=== PATIENT | male | born 1950 | race Caucasian/White ===

== ENCOUNTER 2016-09-24 07:25 | Emergency (ER) | payer OTHER ==
[~2016-09-24] VITALS: Ht 182.9 cm; Wt 79.4 kg
[~2016-09-24 07:25] MED LIST: HYDROCHLOROTH12.5 M1 PO; HYDROCODON-ACE1 EAC7 PO; HYDROCODONE-APA1 TA1 PO; IBUPROFEN 600600 M1 PO; PENICILLIN VK250 MG PO
[2016-09-24] MEDS ORDERED: LISINOPRIL10 MG PO (07:31)
[2016-09-24 07:48] LABS: ABSOLUTE NEUTROPHILS 2.7 thou/uL (1.4-8.2); BASOPHILS 0.6 % (0.0-2.0); EOSINOPHILS 1.7 % (0.0-3.0); HEMATOCRIT 42.9 % (42.0-52.0); HEMOGLOBIN 14.7 gm/dL (14.0-18.0); LYMPHOCYTES 41.8 % (24.0-44.0); MCH 31.2 pg (26.0-34.0); MCHC 34.2 g/dL (28.0-37.0); MCV 91.2 fL (80.0-100.0); MONOCYTES 9.6 % (1.0-8.0); PLATELET COUNT 172 thou/uL (150-400); POLYS 46.3 % (36.0-66.0); RDW 15.6 % (10.5-14.5); WBC 5.9 thou/uL (4.0-11.0)
[2016-09-24 07:59] LABS: MANUAL DIFF NO
[2016-09-24 08:04] LABS: CALCIUM 8.2 mg/dL (8.5-10.1); CREATININE 0.8 mg/dL (0.7-1.3); POTASSIUM 3.1 mmol/L (3.5-5.1)
[2016-09-24 08:09] LABS: ALBUMIN 3.5 g/dL (3.4-5.0); TOTAL BILIRUBIN 0.3 mg/dL (<0.1-1.0); TOTAL PROTEIN 7.4 g/dL (6.4-8.2)
[2016-09-24 08:42] LABS: URINE BILIRUBIN NEGATIVE (Negative); URINE BLOOD NEGATIVE (Negative); URINE COLOR YELLOW; URINE GLUCOSE-RANDOM* NEGATIVE (Negative); URINE KETONES NEGATIVE (Negative); URINE NITRITE NEGATIVE (Negative); URINE PROTEIN (DIPSTICK) NEGATIVE (Negative); URINE SPECIFIC GRAVITY <= 1.005 (1.003-1.035); URINE UROBILINOGEN 0.2 E.U./dl (0.2-1.0)
[2016-09-24 10:48] VITALS: BP 107/50
[2016-09-24] MEDS ORDERED: TYLENOL EXTRA500 MG PO (10:55)
== END 2016-09-24 11:04 | disposition home or self-care (01) ==
LOC: ER 07:25
PROVIDERS: Emergency Medicine
DX: G89.29 Other chronic pain (principal); F10.129 Alcohol abuse with intoxication, unspecified; R51 Headache; F17.210 Nicotine dependence, cigarettes, uncomplicated; I25.2 Old myocardial infarction; Z98.61 Coronary angioplasty status